=== PATIENT | male | born 1975 | race African-American/Black ===

== ENCOUNTER 2021-04-13 16:57 | Emergency (ER) | payer MEDICARE, MEDICAID, SELFPAY ==
[2021-04-13 17:13] VITALS: BP 159/100; PULSE 75; RESP 18; TEMP 37; O2SAT 99; BMI 34.7
--- NOTE | 2021-04-13 17:25 | XRR_ITS ---
PROCEDURE INFORMATION: Exam: XR Left Hip Exam date and time: 04/13/2021 5:25 PM Age: 45 years old Clinical indication: Injury or trauma; Blunt trauma (contusions or hematomas); Left; Injury date: 04/12/21; Injury details: Fall yesterday. Pain in right hip TECHNIQUE: Imaging protocol: XR Left hip. Views: 2 or 3 views hip with pelvis when performed. COMPARISON: No relevant prior studies available. FINDINGS: Bones/joints: No acute fracture. Mild degenerative narrowing of the hips. Soft tissues: Unremarkable. XR/XR hip LT 2-3V wo/w pel* [id number] IMPRESSION: Negative for fracture.
--- NOTE | 2021-04-13 17:43 | XRR_ITS ---
PROCEDURE INFORMATION: Exam: XR Lumbosacral Spine Exam date and time: 04/13/2021 5:43 PM Age: 45 years old Clinical indication: Injury or trauma; Fall; Blunt trauma (contusions or hematomas) TECHNIQUE: Imaging protocol: XR of the lumbosacral spine. Views: 2 or 3 views. COMPARISON: CR (PELVIS, ) 04/13/2021 5:50 PM FINDINGS: Bones/joints: No spine curvature seen. There is slight straightening of the normal lumbar lordosis, without listhesis. No fracture identified. Vertebral body heights are well maintained. There is multilevel degenerative changes, manifested by intervertebral disc space narrowing, endplate osteophytes and facet joint arthrosis. Soft tissues: Unremarkable. XR/XR lumbar spine 2-3V* [id number] IMPRESSION: No acute findings.
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
[2021-04-13 19:07] VITALS: PULSE 86; RESP 18; O2SAT 96
== END 2021-04-13 19:09 | disposition home or self-care (01) ==
PROVIDERS: Emergency Provider Nurse Practitioner Family; PCP Nurse Practitioner Family
DX: S70.02XA Contusion of left hip, initial encounter (principal); W01.198A Fall on same level from slipping, tripping and stumbling with subsequent striking against other object, initial encounter
CPT/HCPCS: 72100; 73502; 99282

== ENCOUNTER 2022-06-30 17:21 | Emergency (ER) | payer MEDICARE, MEDICAID, SELFPAY ==
[2022-06-30] MEDS: acetaminophen 325 mg Tablet 975 MG PO (19:08)
[2022-06-30] MEDS: methocarbamol 750 mg Tablet 1500 MG PO (19:09)
[2022-06-30] MEDS: ketorolac 30 mg/mL INJ 15 MG IM (19:10)
[2022-06-30] MEDS: haloperidol inj 5 mg/mL INJ 1 mL 2 MG IM (19:10)
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
[2022-06-30 19:41] VITALS: BP 166/103; PULSE 90; RESP 16
[2022-06-30 21:17] VITALS: BP 166/103; PULSE 90; RESP 16
== END 2022-06-30 20:20 | disposition home or self-care (01) ==
PROVIDERS: Emergency Provider Emergency Medicine; PCP Nurse Practitioner Family
DX: M54.9 Dorsalgia, unspecified (principal)
CPT/HCPCS: 96372; 99284; J1630; J1885